=== PATIENT | female | born 1985 | race Two or more races ===

== ENCOUNTER → 2024-11-12 | Outpatient (CLI) | payer OTHER ==
[2024-11-12 16:20] LABS: Basophils # (auto) 0.1 10 ^3/uL (0-0.2); Basophils % (auto) 0.9 % (0.0-2.0); Eosinophils # (auto) 0.1 10 ^3/uL (0-0.8); Eosinophils % (auto) 1.1 % (0.0-7.0); Hematocrit 41.6 % (36.0-46.0); Hemoglobin 14.3 g/dL (12.2-16.2); Lymphocytes # (auto) 2.3 10 ^3/uL (0.4-5.4); Lymphocytes % (auto) 20.9 % (10.0-50.0); Mean Corpuscular Hemoglobin 29.3 pg (28.0-32.0); Mean Corpuscular Hgb Conc. 34.3 g/dL (32.0-36.0); Mean Corpuscular Volume 85.4 fL (80.0-100.0); Monocytes # (auto) 0.7 10 ^3/uL (0-1.3); Monocytes % (auto) 6.5 % (0.0-12.0); Neutrophils # (auto) 7.8 10 ^3/uL (1.6-8.6); Neutrophils % (auto) 70.6 % (37.0-80.0); Nucleated Red Blood Cells % 0.1 %; Platelet Count (auto) 343 10^3/uL (140-450); Red Blood Cells 4.87 10^6/uL (4.0-5.20); Red Cell Distribution Width 13.7 % (11.8-14.3)
[2024-11-12 16:38] LABS: Alanine Aminotransferase 15 U/L (7-40); Albumin 4.6 g/dL (3.2-4.8); Alkaline Phosphatase 55 U/L (46-116); Anion Gap 9 (5-15); Bilirubin, Total 0.3 mg/dL (0.2-1.0); Calcium 10.1 mg/dL (8.7-10.4); Carbon Dioxide 23 mmol/L (20-31); Chloride 104 mmol/L (98-107); Cholesterol 160 mg/dL (< 200); Glucose 82 mg/dL (74-106); HDL Cholesterol 50 mg/dL (40-59); LDL Cholesterol 96 mg/dL (< 100)
[2024-11-12 16:44] LABS: Aspartate Aminotransferase 12 U/L (13-40); BUN/Creatinine Ratio 9.1 (10.0-20.0); Blood Urea Nitrogen < 5 mg/dL (9-23); Sodium 136 mmol/L (136-145); Triglycerides 192 mg/dL (< 150)
[2024-11-12 17:20] LABS: Amphetamine Screen, Urine Neg (NEGATIVE); Barbiturate Scree,Urine Neg (NEGATIVE); Benzodiazephine Screen, Urine Neg (NEGATIVE); Cannabinoid Screen, Urine Neg (NEGATIVE); Cocaine Screen, Urine Neg (NEGATIVE); Opiate Scree,Urine Neg (NEGATIVE); Phencyclidine Screen, Urine Neg (NEGATIVE)
[2024-11-12 18:37] LABS: Beta HCG, Quantitative 91002.8 mIU/mL (1.5-4.2); Thyroid Stimulating Hormone 2.5 uIU/mL (0.55-4.78)
[2024-11-13 07:07] LABS: RPR Non Reactive (Non Reactive); Varicella Zoster IgG Antibody Reactive (Non Reactive)
[2024-11-13 21:06] LABS: Chlamydia Trachomatis, NAA Negative (Negative); Neisseria gonorrhoeae, NAA Negative (Negative)
== END | disposition home or self-care (01) ==
LOC: LAB 15:49
PROVIDERS: ATTEND Obstetrics & Gynecology
DX: O23.40 Unspecified infection of urinary tract in pregnancy, unspecified trimester (principal); Z31.430 Encounter of female for testing for genetic disease carrier status for procreative management; Z36.0 Encounter for antenatal screening for chromosomal anomalies; N39.0 Urinary tract infection, site not specified; Z3A.00 Weeks of gestation of pregnancy not specified
CPT/HCPCS: 36415; 80053; 80061; 80307; 84439; 84443; 84702; 85025; 86592; 86703; 86762; 86787; 86850; 86900; 86901; 87086; 87902

== ENCOUNTER → 2024-12-02 | Outpatient (CLI) | payer OTHER ==
[2024-12-03 10:07] LABS: Rubella Antibodies, IgG 7.31 index (Immune >0.99)
== END | disposition home or self-care (01) ==
LOC: LAB 15:06
PROVIDERS: ATTEND Obstetrics & Gynecology
DX: O99.280 Endocrine, nutritional and metabolic diseases complicating pregnancy, unspecified trimester (principal); E28.2 Polycystic ovarian syndrome; Z3A.00 Weeks of gestation of pregnancy not specified
CPT/HCPCS: 36415; 84443; 86762; 87340

== ENCOUNTER 2025-05-12 11:50 | Observation (INO) | payer BC, OTHER ==
[2025-05-12] MEDS ORDERED: PREN1TAB71 OR (12:01)
--- NOTE | 2025-05-12 15:09 | DVH ---
BIOPHYSICAL PROFILE HISTORY: AMA TECHNIQUE: Multiple transabdominal real-time grayscale sonographic images through the gravid uterus of the fetus with duplex Doppler color flow and M-mode spectral analysis FINDINGS: BIOPHYSICAL PROFILE:2 breathing score: 2 movement score: 2 tone score: 2 Quantitative LUIS score: 2 (LUIS: 16.4 Cm.) Total score: 8/8 The cervix obscured by head Single live fetus in cephalic presentation. heart rate 165 beats per minute. Fundal Grade 2-3 placenta without previa or abruption Single live fetus at 35 weeks 4 days Biophysical profile score 8/8 corresponding to an GABRIEL of 06/12/2025 Estimated weight calculi ANATOMY imaged 4-chamber heart image spine image possible nuchal cord stomach visualized kidneys visualized on the right and left Cord insertion visualized Bladder visualized Upper extremities visualized Lower extremities visualized 3-vessel cord visualized IMPRESSION: 1. Biophysical profile score: 8/8 2. FHR: 3. Possible nuchal cord
--- NOTE | 2025-05-12 16:19 | DVHDS2 ---
Physician Discharge Progress N Final Diagnosis: testing for AMA Operations or Procedures: Operations or Procedures 40yo IUP@35.4wks, +FM, denies UCs/LOF/VB VSS Category 1 EFM but NST non-reactive (FHR baseline 150, moderate variability, +accels, -decels) I personally reviewed the EFM tracing. PO hydrated FKC/PTL precautions reviewed f/u in [address] Cardenas consulted, agrees with POC Other Interventions Other Interventions [place] [id number] Ph: [phone] DIAGNOSTIC IMAGING Diagnostic Imaging Report : [id number] Signed PATIENT: RAH POLANCO ACCT: [id number] UNIT: [id number] : 1985 LOC: [facility] ROOM / BED: [address] AGE / SEX: 40 / F ADM STATUS: ADM IN SERVICE 1158 ORDERING PHYSICIAN: NIEVES RODRIGUEZ CNM PROCEDURE(s): BPP - BIOPHYSICAL PROFILE REASON: AMA ORDER NUMBER(s): [id number], ACCESSION NUMBER(s): [id number] BIOPHYSICAL PROFILE HISTORY: AMA TECHNIQUE: Multiple transabdominal real-time grayscale sonographic images through the gravid uterus of the fetus with duplex Doppler color flow and M-mode spectral analysis FINDINGS: BIOPHYSICAL PROFILE:2 breathing score: 2 movement score: 2 tone score: 2 Quantitative LUIS score: 2 (LUIS: 16.4 Cm.) Total score: 8/8 The cervix obscured by head Single live fetus in cephalic presentation. heart rate 165 beats per minute. Fundal Grade 2-3 placenta without previa or abruption Single live fetus at 35 weeks 4 days Biophysical profile score 8/8 corresponding to an GABRIEL of 06/12/2025 Estimated weight calculi ANATOMY imaged 4-chamber heart image spine image possible nuchal cord stomach visualized kidneys visualized on the right and left Cord insertion visualized Bladder visualized Upper extremities visualized Lower extremities visualized 3-vessel cord visualized IMPRESSION: 1. Biophysical profile score: 8/8 2. FHR: 3. Possible nuchal cord ATED BY: ZAINAB GURROLA Jr., DO DICTATED DATE/TIME: 05/12/25 1507 SIGNED BY: ZAINAB GURROLA Jr., SIGNED DATE/TIME: 05/12/25 1507 CC: Condition on Discharge: Stable Disposition: Home Discharge Instructions: Diet: Regular Activity: No Restrictions, As Tolerated Medications: see med list Follow Up Care: Specialist: f/u in 2 days Discharge Statement: "Patient was advised to return to the ER or call 911 if any headaches, dizziness, shortness of breath, chest pain, abdominal pain, bleeding, fevers, or worsening of medical condition. Patient was counseled about treatment plan, medications, possible side effects, patientverbalized understanding. All questions were answered to the best of my ability. This discharge took greater then 30 minutes in planning, reviewing documentation, counseling the patient, and discussing with other team members." Visit Coding OBGYN Date of Service: May 12, 2025 Billing Provider: NIEVES RODRIGUEZ CNM RN REVIEW Common Visit Codes: [id number] OBS CARE (HIGH) RN REVIEW Procedure Codes: 87750-52- NON-STRESS TEST NIEVES RODRIGUEZ CNM May 12, 2025 16:18
== END 2025-05-12 15:03 | disposition home or self-care (01) ==
LOC: LDRP 11:50 → UNDOADMOB 11:50 → LDRP 11:59 → UNDODISOB 15:03
PROVIDERS: ADMIT Obstetrics & Gynecology; ATTEND Obstetrics & Gynecology
DX: Z36.89 Encounter for other specified antenatal screening (principal); O09.523 Supervision of elderly multigravida, third trimester; Z3A.35 35 weeks gestation of pregnancy; Z98.890 Other specified postprocedural states; Z79.899 Other long term (current) drug therapy
CPT/HCPCS: 76818; 81002; 94760; G0378; 59025; 76819

== ENCOUNTER 2025-05-14 10:50 | Observation (INO) | payer BC ==
[~2025-05-14 10:50] MED LIST: PREN1TAB71 OR
--- NOTE | 2025-05-14 11:40 | DVH ---
BIOPHYSICAL PROFILE HISTORY: advanced maternal age TECHNIQUE: Multiple transabdominal real-time grayscale sonographic images through the gravid uterus o f the fetus with duplex doppler color flow and M-mode spectral analysis FINDINGS: BIOPHYSICAL PROFILE: breathing score: 2 movement score: 2 tone score: 2 Quantitative LUIS score: 2 (LUIS: 13.9 cm.) Total score: 8/8 Single live fetus in cephalic presentation. heart rate 159 beats per minute. Fundal/ posterior placenta without previa or abruption Biophysical profile score 8/8 corresponding to an GABRIEL of 06/12/25 IMPRESSION: Biophysical profile score: 8/8
--- NOTE | 2025-05-16 09:01 | DVHDS2 ---
Physician Discharge Progress N Final Diagnosis: ama 35wks Operations or Procedures: Operations or Procedures nst reactive reviwed,sono Condition on Discharge: Good Disposition: Home Discharge Instructions: Diet: Regular Activity: No Restrictions, As Tolerated Medications: na Follow Up Care: Specialist: 1wk Discharge Statement: "Patient was advised to return to the ER or call 911 if any headaches, dizziness, shortness of breath, chest pain, abdominal pain, bleeding, fevers, or worsening of medical condition. Patient was counseled about treatment plan, medications, possible side effects, patientverbalized understanding. All questions were answered to the best of my ability. This discharge took greater then 30 minutes in planning, reviewing documenta tion, counseling the patient, and discussing with other team members." Visit Coding OBGYN Date of Service: May 08, 2025 Billing Provider: SENA BELL DO ROUGHING MILL OPERATOR Common Visit Codes: [id number] OBS CARE (HIGH) ROUGHING MILL OPERATOR Procedure Codes: 80090-85- NON-STRESS TEST SENA BELL DO May 16, 2025 09:01
== END 2025-05-14 12:14 | disposition home or self-care (01) ==
LOC: LDRP 10:50
PROVIDERS: ADMIT Obstetrics & Gynecology; ATTEND Obstetrics & Gynecology
DX: O09.523 Supervision of elderly multigravida, third trimester (principal); Z3A.35 35 weeks gestation of pregnancy; Z98.890 Other specified postprocedural states; Z79.899 Other long term (current) drug therapy
CPT/HCPCS: 76818; 76819; 81002; 94760; G0378; 59025

== ENCOUNTER 2025-05-21 09:12 | Observation (INO) | payer BC ==
--- NOTE | 2025-05-21 10:05 | DVH ---
BIOPHYSICAL PROFILE HISTORY: AMA TECHNIQUE: Multiple transabdominal real-time grayscale sonographic images through the gravid uterus of the fetus with duplex Doppler color flow and M-mode spectral analysis FINDINGS: BIOPHYSICAL PROFILE: breathing score: 2 movement score: 2 tone score: 2 Quantitative LUIS score: 2 (LUIS: 11.2 Cm.) Total score: 8 The cervix not well visualized. Single live fetus in cephalic presentation. heart rate 148 beats per minute. Posterior placenta without previa or abruption IMPRESSION: Biophysical profile score: 8
== END 2025-05-21 10:26 | disposition home or self-care (01) ==
LOC: LDRP 09:12
PROVIDERS: ADMIT Obstetrics & Gynecology; ATTEND Obstetrics & Gynecology
DX: Z36.89 Encounter for other specified antenatal screening (principal); Z3A.36 36 weeks gestation of pregnancy; Z98.890 Other specified postprocedural states
CPT/HCPCS: 76818; 81002; 94760; G0378; 59025; 76819

== ENCOUNTER 2025-05-28 06:26 | Observation (INO) | payer BC ==
--- NOTE | 2025-05-28 10:05 | DVH ---
BIOPHYSICAL PROFILE HISTORY: AMA Comparison Study: US BIOPHYSICAL PROFILE on DOS: 05/21/25, US BIOPHYSICAL PROFILE on DOS: 05/14/25, US BIOPHYSICAL PROFILE on DOS: 05/12/25 TECHNIQUE: Multiple real-time grayscale sonographic images through the gravid uterus of the fetus wi th duplex Doppler color flow and M-mode spectral analysis FINDINGS: BIOPHYSICAL PROFILE: breathing score: 2 movement score: 2 tone score: 2 Quantitative LUIS score: 2 (LUIS: 7.8 Cm.) Total score: 8 The cervix is not visualized Single live fetus in cephalic presentation. heart rate 147 beats per minute. Posterior placenta without previa or abruption IMPRESSION: Biophysical profile score: 8
--- NOTE | 2025-05-28 14:46 | DVHDS2 ---
Physician Discharge Progress N Final Diagnosis: ama 37wks Operations or Procedures: Operations or Procedures nst reactive reviwed,sono Condition on Discharge: Good Disposition: Home Discharge Instructions: Diet: Regular Activity: No Restrictions, As Tolerated Medications: na Follow Up Care: Specialist: 1w Discharge Statement: "Patient was advised to return to the ER or call 911 if any headaches, dizziness, shortness of breath, chest pain, abdominal pain, bleeding, fevers, or worsening of medical condition. Patient was counseled about treatment plan, medications, possible side effects, patientverbalized understanding. All questions were answered to the best of my ability. This discharge took greater then 30 minutes in planning, reviewing documentat ion, counseling the patient, and discussing with other team members." Visit Coding OBGYN Date of Service: May 28, 2025 Billing Provider: SENA BELL DO GAS LINE SERVICER Common Visit Codes: [id number] OBS CARE (HIGH) GAS LINE SERVICER Procedure Codes: 77307-47- NON-STRESS TEST SENA BELL DO May 28, 2025 14:45
== END 2025-05-28 10:52 | disposition home or self-care (01) ==
LOC: LDRP 08:49
PROVIDERS: ADMIT Obstetrics & Gynecology; ATTEND Obstetrics & Gynecology
DX: O09.513 Supervision of elderly primigravida, third trimester (principal); Z3A.37 37 weeks gestation of pregnancy; Z98.890 Other specified postprocedural states
CPT/HCPCS: 76818; 81002; 94760; G0378; 59025; 76819

== ENCOUNTER 2025-05-30 12:12 | Observation (INO) | payer BC ==
[~2025-05-30] VITALS: Ht 157.5 cm; Wt 85.7 kg
--- NOTE | 2025-05-30 13:03 | DVH ---
BIOPHYSICAL PROFILE HISTORY: LUIS CHECK/ AMA TECHNIQUE: Multiple transabdominal real-time grayscale sonographic images through the gravid uterus of the fetus with duplex Doppler color flow and M-mode spectral analysis FINDINGS: Biophysical score of 8/8. heart rate of 169 beats per minute. position is cephalic. LUIS of 5.64. Placenta is in posterior position. No placenta abrupt out or previous noted at this time. IMPRESSION: 1. Biophysical score of 8/8 2. LUIS of 5.64, low.
[2025-05-30] MEDS: LACTATED RINGER'S 1,000 ML IV ONE (13:56)
--- NOTE | 2025-06-10 15:27 | DVHDS2 ---
Physician Discharge Progress N Final Diagnosis: ama,gdm Operations or Procedures: Operations or Procedures nst reactive reviwed,sono Condition on Discharge: Good Disposition: Home Discharge Instructions: Diet: Regular Activity: No Restrictions, As Tolerated Medications: na Follow Up Care: Specialist: 3d Discharge Statement: "Patient was advised to return to the ER or call 911 if any headaches, dizziness, shortness of breath, chest pain, abdominal pain, bleeding, fevers, or worsening of medical condition. Patient was counseled about treatment plan, medications, possible side effects, patientverbalized understanding. All questions were answered to the best of my ability. This discharge took greater then 30 minutes in planning, reviewing documentatio n, counseling the patient, and discussing with other team members." Visit Coding OBGYN Date of Service: May 30, 2025 Billing Provider: SENA BELL DO FAMILY SERVICES SPECIALIST Common Visit Codes: 76125-[id number] (HIGH) FAMILY SERVICES SPECIALIST Procedure Codes: 57530-54- NON-STRESS TEST SENA BELL DO Jun 10, 2025 15:27
== END 2025-05-30 14:45 | disposition home or self-care (01) ==
LOC: LDRP 12:12
PROVIDERS: ADMIT Obstetrics & Gynecology; ATTEND Obstetrics & Gynecology
DX: O24.419 Gestational diabetes mellitus in pregnancy, unspecified control (principal); Z3A.38 38 weeks gestation of pregnancy; Z98.890 Other specified postprocedural states
CPT/HCPCS: 59025; 76818; 81002; 96360; 96361; G0378; 76819

== ENCOUNTER 2025-05-31 08:34 | Observation (INO) | payer BC ==
--- NOTE | 2025-05-31 09:24 | DVH ---
BIOPHYSICAL PROFILE HISTORY: low LUIS TECHNIQUE: Multiple transabdominal real-time grayscale sonographic images through the gravid uterus of the fetus with duplex Doppler color flow and M-mode spectral analysis FINDINGS: Biophysical score of 8/8. heart rate of 162 beats per minute. Cephalic position. LUIS of 7.3 cm. Posterior placental location. No placenta previa or abruptio. IMPRESSION: 1. Biophysical score of 8/ 2. LUSI of 7.3 cm, low.
--- NOTE | 2025-06-01 17:27 | DVHDS2 ---
Discharge Summary Date of Admission May 31, 2025 at 08:34 Date of Discharge: May 31, 2025 Admitting Diagnosis 3827 weeks who for routine monitoring secondary to low amniotic fluid index Wounds: None Labs/Diagnostic Data: NST BPP ultrasound performed reassuring adequate Brief Hx & Hospital Course: Patient here for routine for NST and ultrasound Consults/Reason for consult No consults Operations or Procedures None only NST ultrasound performed Condition at Discharge: Good Final Diagnosis/Problems List 30-10/31 low LUIS reassuring heart tones and amniotic fluid Discharge Disposition: Home Discharge Instruct/Medications Diet: Regular Activity: Light activity Activity comment: Kick counts labor precautions Follow Up/Referral: Follow up as scheduled for continuous monitoring. Miscellaneous Medications Vit W/ Ferrous Fumara (Pnv Plus Multivi), 1 OR, (Reported) Discharge Statement: "Patient was advised to return to the ER or call 911 if any headaches, dizziness, shortness of breath, chest pain, abdominal pain, bleeding, fevers, or worsening of medical condition. Patient was counseled about treatment plan, medications, possible side effects, patientverbalized understanding. All questions were answered to the best of my ability. This discharge took greater then 30 minutes in planning, reviewing do cumentation, counseling the patient, and discussing with other team members." ASSESSMENT ASSESSMENT Assessment Visit Coding OBGYN Date of Service: May 31, 2025 Billing Provider: JONNIE JUAREZ DO MACHINE REPAIRER Common Visit Codes: [id number] INP/OBS CARE(MOD), 48026-[id number] INP/OBS CARE(HIGH), 29651-UKS/OBS SAME DATE (LOW) MACHINE REPAIRER Procedure Codes: 32521-45- NON-STRESS TEST JONNIE JUAREZ DO Jun 01, 2025 17:26
--- NOTE | 2025-06-01 17:48 | DVHDS2 ---
Discharge Summary Date of Admission May 31, 2025 at 08:34 Date of Discharge: May 31, 2025 Admitting Diagnosis Thirty-eight weeks advanced maternal age history of low fluid LUIS Wounds: None Labs/Diagnostic Data: None Brief Hx & Hospital Course: Patient here for routine for NST and ultrasound both reassuring Consults/Reason for consult None Operations or Procedures None only NST ultrasound performed Condition at Discharge: Good Final Diagnosis/Problems List low LUIS reassuring heart tones and amniotic fluid Discharge Disposition: Home Discharge Instruct/Medications Diet: Regular Activity: Light activity Activity comment: Kick counts labor precautions Follow Up/Referral: Follow up as scheduled for continuous monitoring. Medications: Resume home med Miscellaneous Medications Vit W/ Ferrous Fumara (Pnv Plus Multivi), 1 OR, (Reported) Discharge Statement: "Patient was advised to return to the ER or call 911 if any headaches, dizziness, shortness of breath, chest pain, abdominal pain, bleeding, fevers, or worsening of medical condition. Patient was counseled about treatment plan, medications, possible side effects, patientverbalized understanding. All questions were answered to the best of my ability. This discharge took greater then 30 minutes in planning, reviewing documentation, counseling the patient, and discussing with other team members." ASSESSMENT ASSESSMENT Hospital Course Patient here for routine for NST and ultrasound Assessment low LUIS reassuring heart tones and amniotic fluid Visit Coding OBGYN Date of Service: May 30, 2025 Billing Provider: JONNIE JUAREZ DO REFRIGERATION PLANT OPERATOR Common Visit Codes: [id number] INP/OBS CARE(MOD), 67198-[id number] INP/OBS CARE(HIGH), 37362-GJM/OBS SAME DATE (LOW) REFRIGERATION PLANT OPERATOR Procedure Codes: 95062-00- NON-STRESS TEST JONNIE JUAREZ DO Jun 01, 2025 17:48
== END 2025-05-31 10:00 | disposition home or self-care (01) ==
LOC: LDRP 08:34
PROVIDERS: ADMIT Obstetrics & Gynecology; ATTEND Obstetrics & Gynecology
DX: O42.92 Full-term premature rupture of membranes, unspecified as to length of time between rupture and onset of labor (principal); Z3A.38 38 weeks gestation of pregnancy; Z98.890 Other specified postprocedural states
CPT/HCPCS: 76818; 81002; G0378; 59025; 76819

== ENCOUNTER 2025-06-02 08:12 | Observation (INO) | payer BC ==
--- NOTE | 2025-06-02 10:00 | DVH ---
CLINICAL HISTORY: Low LUIS COMPARISON: US BIOPHYSICAL PROFILE on DOS: 05/31/25, US BIOPHYSICAL PROFILE on DOS: 05/30/25, US BIOPHYSI SIMBA PROFILE on DOS: 05/28/25 TECHNIQUE: biophysical profile was performed. Transabdominal sonographic images of the fetus we re obtained. FINDINGS: The fetus is in cephalic position. heart rate measures 148 BPM. Amniotic fluid index measures 7.3 cm. The placenta is posterior in position with no evidence of previa or abruption visual ized. BPP profile is an overall score of 8/8, with 2/2 points for breathing, with at least one episode of breathing over a 30 second duration during a 30 minute observation, 2/2 points for m ovements, with 3 or more discrete body or limb movements, 2/2 points for tone, with one or more episodes of extremity extension with return to flexion, or opening and closing of hand, and 2/ 2 points for amniotic fluid, with at least 1 pocket of amniotic fluid that measures 2 cm in 2 perpend icular planes. IMPRESSION: 1. BPP score of 8/8. 2. Amniotic fluid index measures 7.3 cm.
--- NOTE | 2025-06-03 23:05 | DVHDS2 ---
Physician Discharge Progress N Final Diagnosis: ama 38wks low ellie Operations or Procedures: Operations or Procedures nst reactive reviewed,sono Condition on Discharge: Good Disposition: Home Discharge Instructions: Diet: Regular Activity: No Restrictions, As Tolerated Medications: na Follow Up Care: Specialist: 1d Discharge Statement: "Patient was advised to return to the ER or call 911 if any headaches, dizziness, shortness of breath, chest pain, abdominal pain, bleeding, fevers, or worsening of medical condition. Patient was counseled about treatment plan, medications, possible side effects, patientverbalized understanding. All questions were answered to the best of my ability. This discharge took greater then 30 minutes in planning, reviewing documentation, counseling the patient, and discussing with other team members." Discharge Care Plan Instructions S/S of dehydration Visit Coding OBGYN Date of Service: Jun 02, 2025 Billing Provider: SENA BELL DO BUGGY MAN Common Visit Codes: [id number] INP/OBS CARE (HIGH) BUGGY MAN Procedure Codes: [id number] NON-STRESS TEST SENA BELL DO Jun 03, 2025 23:05
== END 2025-06-02 10:41 | disposition home or self-care (01) ==
LOC: LDRP 08:12 → UNDOADMOB 08:12 → LDRP 09:22
PROVIDERS: ADMIT Obstetrics & Gynecology; ATTEND Obstetrics & Gynecology
DX: O42.92 Full-term premature rupture of membranes, unspecified as to length of time between rupture and onset of labor (principal); Z3A.38 38 weeks gestation of pregnancy; Z98.890 Other specified postprocedural states
CPT/HCPCS: 76818; 81002; 94760; G0378; 59025; 76819

== ENCOUNTER 2025-06-03 08:02 | Inpatient (IN) | payer BC ==
[~2025-06-03] VITALS: Ht 157.5 cm; Wt 92.5 kg
--- NOTE | 2025-06-03 09:04 | DVH ---
CLINICAL HISTORY: decreased movement COMPARISON: US BIOPHYSICAL PROFILE on DOS: 06/02/25, US BIOPHYSICAL PROFILE on DOS: 05/31/25, US BIOPHYSI SIMBA PROFILE on DOS: 05/30/25 TECHNIQUE: biophysical profile was performed. Transabdominal sonographic images of the fetus we re obtained. FINDINGS: The fetus is in cephalic position. heart rate measures 145 BPM. Amniotic fluid index measures 5.1 cm. The placenta is posterior in position without visualized evidence of previa or abrup tion. BPP profile is an overall score of 8/8, with 2/2 points for breathing, with at least one episode of breathing over a 30 second duration during a 30 minute observation, 2/2 points for m ovements, with 3 or more discrete body or limb movements, 2/2 points for tone, with one or more episodes of extremity extension with return to flexion, or opening and closing of hand, and 2/ 2 points for amniotic fluid, with at least 1 pocket of amniotic fluid that measures 2 cm in 2 perpend icular planes. IMPRESSION: 1. BPP score of 8/8. 2. Amniotic fluid index measures 5.1 cm.
[2025-06-03] MEDS ORDERED: LIDOCAINE 2%HCL (LOCAL ANESTH.) INJ 20ML MDV IJ PRN (10:00)
[2025-06-03] MEDS ORDERED: BUTORPHANOL TARTRATE 2 MG/1 ML VIAL IV PRN ×2 (10:00)
[2025-06-03 10:56] LABS: Hematocrit 39.0 % (36.0-46.0); Hemoglobin 13.4 g/dL (12.2-16.2); Mean Corpuscular Hemoglobin 30.4 pg (28.0-32.0); Mean Corpuscular Volume 88.4 fL (80.0-100.0); Nucleated Red Blood Cells % 0.2 %
[2025-06-03 11:13] LABS: INR 0.9 (0.9-1.15); Partial Thromboplastin Time 31.0 SEC (24.5-34.5); Prothrombin Time 9.6 sec (9.3-11.8)
[2025-06-03 11:14] LABS: Alanine Aminotransferase 17 U/L (7-40); Albumin 4.3 g/dL (3.2-4.8); Alkaline Phosphatase 130 U/L (46-116); Anion Gap 10 (5-15); BUN/Creatinine Ratio 10.9 (10.0-20.0); Bilirubin, Total 0.4 mg/dL (0.2-1.0); Blood Urea Nitrogen 6 mg/dL (9-23); Calcium 9.7 mg/dL (8.7-10.4); Carbon Dioxide 24 mmol/L (20-31); Chloride 104 mmol/L (98-107); Glucose 62 mg/dL (74-106); Potassium 4.0 mmol/L (3.5-5.1); Sodium 138 mmol/L (136-145); Total Protein 7.2 g/dL (5.7-8.2)
[2025-06-03 11:55] LABS: Urine Protein, UAD Negative (Negative)
[2025-06-03 12:02] LABS: Amphetamine Screen, Urine Neg (NEGATIVE); Barbiturate Scree,Urine Neg (NEGATIVE); Benzodiazephine Screen, Urine Neg (NEGATIVE); Cannabinoid Screen, Urine Neg (NEGATIVE); Cocaine Screen, Urine Neg (NEGATIVE); Opiate Scree,Urine Neg (NEGATIVE); Phencyclidine Screen, Urine Neg (NEGATIVE)
--- NOTE | 2025-06-03 12:18 | DVHHP2 ---
OB CC & HPI Date Date of Admission: Jun 03, 2025 Patient Identification: : 3 Para: 2 EDC: Jun 12, 2025 EGA: 38.5wk Chief Complaints: Reason for admission: induction of labor Indication for induction: other (low LUIS) Admission Nurse Assessment Rev: Yes History of Present Complaints 40 yo IUP 38.5wk presents to OB triage for N/V and decreased movement. Denies any LOF/ VB/ BALDWIN/ vision changes or epigastric pain. 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, denies any other radio despatcher issues OB hx: in 2008, baby boy at 6lb, in 2019 baby boy at 6lb, denies any miscarriage or abortions or any other OB issues Past Medical History Cardiac: No pertinent Hx Pulmonary: No pertinent Hx Central Nervous System: No pertinent Hx GI: No pertinent Hx Hemotology/Oncology: No pertinent Hx Hepatobiliary: No pertinent Hx Psychiatric: No pertinent Hx Musculoskeletal: No pertinent Hx Rheumotologic: No pertinent Hx Infectious Disease: No peritnent Hx ENT: No pertinent Hx Renal/: No pertinent Hx Endocrine: No pertinent Hx Dermatology: No pertinent Hx Past Surgical History: No pertinent Hx OB History OB History Care: Good Care Ultrasounds: Normal mid trimester US Obstetrical Complications: None Medical Complications: None Other Concerns: US revealed low LUIS of 5.1 Allergies: Coded Allergies: NO KNOWN ALLERGIES (Unverified , 05/30/25) Home Meds Reported Medications Vit W/ Ferrous Fumara (PNV PLUS MULTIVI) Plus Tab, 1 OR, TAB 05/12/25 Current Medications Current Medications Medications (Trade) Dose Ordered Sig/Georgie Route PRN Reason Start Time Stop Time Status Last Admin Lactated Ringer's 1,000 ml @ 125 mls/hr Q8H IV 06/03/25 10:00 Witch Ruthie (Tucks) 1 pad PRN PRN TOP PERINEAL AREA DISCOMFORT 06/03/25 10:00 Sodium Lauryl Sulfate (Phisoderm) 240 ml PRN PRN TOP PERINEAL AREA DISCOMFORT 06/03/25 10:00 Benzocaine (Dermoplast) 1 applic PRN PRN TOP PERINEAL AREA DISCOMFORT 06/03/25 10:00 Butorphanol Tartrate (Stadol Injection) 1 mg Q4HPRN PRN IV MODERATE PAIN (4-6 PAIN SCALE) 06/03/25 10:00 Butorphanol Tartrate (Stadol Injection) 2 mg Q4HPRN PRN IV SEVERE PAIN (7-10 PAIN SCALE) 06/03/25 10:00 Misoprostol (Cytotec) 50 mcg Q4HPRN PRN PO CERVICAL RIPENING 06/03/25 10:00 06/03/25 11:50 Lidocaine HCl (Xylocaine) 20 ml ONCE PRN IJ PERINEAL AREA DISCOMFORT 06/03/25 10:00 Family & Social History Family/Social History Past Family/Social History: denies any family medical hx Social hx: pt states she does not work, denies use of drug or alcohol abuse with Blood Type: O+ Rubella: immune RPR/VDRL: Negative GBS Status: Negative (05/19/25) HBsAG: Negative Review of Systems Constitutional: No symptom reported Ears, Nose, & Throat: No symptom reported Eyes: No symptom reported Pulmonary/Respiratory: No symptom reported Cardiovascular: No symptom reported Gastrointestinal: No symptom reported Genitourinary: No symptom reported Musculoskeletal: No symptom reported Skin: No symptom reported Psychiatric: No symptom reported Endocrine: No symptom reported Hemotologic/Lymphatic: No symptom reported OB Admission Exam Physical Exam HEENT: TMs Normal, Fontanelles Normal, Nasal Mucosa Normal, Eyes non-injected, Oropharynx Normal, PERRLA, Moist Membranes, EOMI Heart: Rhythm Normal Lungs: Clear Abdomen: Gravid Extremities: Normal Reflexes: Normal Pelvic Exam: none Cervical Dilatation: 1cm Effacement: Other (thick) Station: -3 Membranes: Intact Heart Rate: 120's Accelerations: Accelerations Present Decelerations: No Decelerations Med Aide Variability: Average (6-25) Contractions on Admission: 6-10 Minutes Apart (1/10 min) Date/Time Contractions Began: 06/03/25 Frequency of Contractions: 1 in 10 min Duration: 90 Intensity: Mild (pt states she does not feel UC) OB Plan Plan Admitting Diagnosis: Induction of labor for Low LUIS 40 yo IUP @ 38.5wk GBS negative Cat 1 tracing Intact membranes Plan: Induction Induction Methd: Misoprostol protocol Other Plan: Plan: Admit to L&D Informed consent obtained Discussed risk, benefits and alternatives of IOL with pt. Pt agrees to IOL with cytotec monitoring per order Routine labs ordered Pain management PRN Frequent position changes in and out of bed encouraged Intrauterine resuscitation PRN Limit SVE unless necessary Anticipate Consult with Dr Cardenas PRN Visit Coding OBGYN Date of Service: Jun 03, 2025 Billing Provider: SENA CARDENAS DO HOSPICE PHYSICIAN Common Visit Codes: [id number] INP/OBS CARE (MOD) GRACIELA DENTON Jun 03, 2025 12:18
--- NOTE | 2025-06-03 15:27 | DVHPN2 ---
Chief Complaints Patient reports: No new complaints Nursing reports: No new complaints Objective Medications Current Medications Medications (Trade) Dose Ordered Sig/Georgie Route PRN Reason Start Time Stop Time Status Last Admin Benzocaine (Dermoplast) 1 applic PRN PRN TOP PERINEAL AREA DISCOMFORT 06/03/25 10:00 Butorphanol Tartrate (Stadol Injection) 1 mg Q4HPRN PRN IV MODERATE PAIN (4-6 PAIN SCALE) 06/03/25 10:00 Butorphanol Tartrate (Stadol Injection) 2 mg Q4HPRN PRN IV SEVERE PAIN (7-10 PAIN SCALE) 06/03/25 10:00 Lactated Ringer's 1,000 ml @ 125 mls/hr Q8H IV 06/03/25 10:00 Lidocaine HCl (Xylocaine) 20 ml ONCE PRN IJ PERINEAL AREA DISCOMFORT 06/03/25 10:00 Misoprostol (Cytotec) 50 mcg Q4HPRN PRN PO CERVICAL RIPENING 06/03/25 10:00 06/03/25 11:50 Sodium Lauryl Sulfate (Phisoderm) 240 ml PRN PRN TOP PERINEAL AREA DISCOMFORT 06/03/25 10:00 Witch Ruthie (Tucks) 1 pad PRN PRN TOP PERINEAL AREA DISCOMFORT 06/03/25 10:00 Others ve-1cm/50/-2 Studies Laboratory Tests 06/03/25 10:16 Test 06/03/25 10:16 Range/Units Serum Glucose 62 L 74-106 mg/dL Ass/Plan Assessment iol for oligo Plan recived one cytotec Visit Coding OBGYN Date of Service: Jun 03, 2025 Billing Provider: SENA BELL DO RESIDENTIAL AIDE Common Visit Codes: [id number] OBS CARE (HIGH) RESIDENTIAL AIDE Procedure Codes: 85169-42- NON-STRESS TEST SENA BELL DO Jun 03, 2025 15:27
--- NOTE | 2025-06-03 16:00 | DVHPN2 ---
Chief Complaints Patient reports: No new complaints Nursing reports: No new complaints Objective Medications Current Medications Medications (Trade) Dose Ordered Sig/Georgie Route PRN Reason Start Time Stop Time Status Last Admin Benzocaine (Dermoplast) 1 applic PRN PRN TOP PERINEAL AREA DISCOMFORT 06/03/25 10:00 Butorphanol Tartrate (Stadol Injection) 1 mg Q4HPRN PRN IV MODERATE PAIN (4-6 PAIN SCALE) 06/03/25 10:00 Butorphanol Tartrate (Stadol Injection) 2 mg Q4HPRN PRN IV SEVERE PAIN (7-10 PAIN SCALE) 06/03/25 10:00 Lactated Ringer's 1,000 ml @ 125 mls/hr Q8H IV 06/03/25 10:00 Lidocaine HCl (Xylocaine) 20 ml ONCE PRN IJ PERINEAL AREA DISCOMFORT 06/03/25 10:00 Misoprostol (Cytotec) 50 mcg Q4HPRN PRN PO CERVICAL RIPENING 06/03/25 10:00 06/03/25 11:50 Sodium Lauryl Sulfate (Phisoderm) 240 ml PRN PRN TOP PERINEAL AREA DISCOMFORT 06/03/25 10:00 Witch Ruthie (Tucks) 1 pad PRN PRN TOP PERINEAL AREA DISCOMFORT 06/03/25 10:00 Others ve-2-3 cm/50/-2 Studies Laboratory Tests 06/03/25 10:16 Test 06/03/25 10:16 Range/Units Serum Glucose 62 L 74-106 mg/dL Ass/Plan Assessment iol for oligo Plan rec 2 cytotec Visit Coding OBGYN Date of Service: Jun 03, 2025 Billing Provider: SENA BELL DO CENTRAL OFFICE EQUIPMENT INSTALLER Common Visit Codes: [id number] INP/OBS CARE(HIGH) CENTRAL OFFICE EQUIPMENT INSTALLER Procedure Codes: 72612-94- NON-STRESS TEST SENA BELL DO Jun 03, 2025 16:00
[2025-06-03] MEDS: LACTATED RINGER'S 1,000 ML IV SCH (16:03)
[2025-06-03] MEDS: WITCH HAZEL-GLYCERIN PAD TOP PRN (18:19)
[2025-06-03] MEDS: DERMOPLAST 60ML BOTTLE TOP PRN (18:19)
[2025-06-03] MEDS: PHISODERM TOP SOLN 240ML BTL TOP PRN (18:19)
[2025-06-03] MEDS ORDERED: LIDOCAINE HCL 2 %PF INJ 10ML AMP IJ ONE (19:00)
[2025-06-03] MEDS ORDERED: NALOXONE HCL 0.4 MG/ML VIAL IV ONE (19:00)
[2025-06-03] MEDS: fentaNYL CITRATE 100 MCG/2 ML VL IV ONE (19:38)
[2025-06-03] MEDS: ROPIVACAINE HCL 100 ML ONE (19:39)
[2025-06-03] MEDS: LACTATED RINGER'S 1,000 ML IV ONE (19:55)
--- NOTE | 2025-06-03 20:06 | EPIDURAL ---
Anesthesia Procedural Note - Epidural Informed consent obtained?: Yes Medication Administered: Fentanyl 100 mcg Sterile prept drape: Yes Spinal level of insertion: L4-L5 Test dose of lidocaine & Epine: Negative Infusion started: Yes Start time: 19:15 End time: 19:45 Procedure description Procedure description: Called for labor analgesia. Patient examined, history taken and chart reviewed. Patient is admitted for induction, requesting epidural. Informed consent for CSE obtained. Sitting position, sterile prep and drape (BP 150/79 HR 88 spO2 98). Time out done. L4-5 space infiltrated with 1% lido. Epidural needle placed with KANDIS at 6cm. 25G spinal needle +clear CSF. 15mcg fentanyl given IT. Epidural catheter secured at 11cm. Aspiration and test dose (3cc 1.5% lido with epi) nega tive (BP 140/80 HR 83 spO2 98). 85mcg fentanyl given via epidural catheter. Patient reports good pain relief. 0.2% ropivacaine infusion started. Will follow as needed. HILARY LYNNE MD Jun 03, 2025 20:06
--- NOTE | 2025-06-03 20:21 | DVHPN2 ---
CNM Labor Progress Note Date and Time Seen Date Seen: Jun 03, 2025 Time Seen: 20:04 Subjective Patient reports: No new complaints Subjective Comment L&D Rounding Note 06/03/2025 Time 2000 40 yo (2,0,0,2) IUP 38w5d IOL for Oligohydramnios LUIS 5.1 Reports good movements Problems Multigravida Advance Maternal Age Oligohydramnios Received care with Dr Cardenas . HPI - normal course thus far / AMA/ Oligohydramnios / X2 Blood Type : O positive Antibody : Negative Rubella: Immune RPR: Non Reactive GBS status: Negative Last OB US Date: EFW 6lbs 0 oz Past History OB: G#1 2008 G#2 2019 G#3 Current Objective Vital Signs Date Time Temp Pulse Resp B/P (MAP) Pulse Ox O2 Delivery O2 Flow Rate FiO2 06/03/25 19:38 137/83 Current Medications Medications (Trade) Dose Ordered Sig/Georgie Start Time Stop Time Status Last Admin Dose Admin Lactated Ringer's 1,000 ml @ 125 mls/hr Q8H 06/03/25 10:00 06/03/25 16:03 125 MLS/HR Witch Ruthie (Tucks) 1 pad PRN PRN 06/03/25 10:00 06/03/25 18:19 1 PAD Sodium Lauryl Sulfate (Phisoderm) 240 ml PRN PRN 06/03/25 10:00 06/03/25 18:19 240 ML Benzocaine (Dermoplast) 1 applic PRN PRN 06/03/25 10:00 06/03/25 18:19 1 APPLIC Butorphanol Tartrate (Stadol Injection) 1 mg Q4HPRN PRN 06/03/25 10:00 Butorphanol Tartrate (Stadol Injection) 2 mg Q4HPRN PRN 06/03/25 10:00 Misoprostol (Cytotec) 50 mcg Q4HPRN PRN 06/03/25 10:00 06/03/25 16:01 50 MCG Lidocaine HCl (Xylocaine) 20 ml ONCE PRN 06/03/25 10:00 Oxytocin 500 ml @ 999 mls/hr Q31M ONCE 06/03/25 13:30 06/03/25 14:00 DC Oxytocin 500 ml @ 125 mls/hr Q4H ONCE 06/03/25 14:00 06/03/25 17:59 DC Naloxone HCl (Narcan) 0.2 mg PRN ONCE 06/03/25 19:00 06/03/25 19:01 DC Ephedrine Sulfate (ePHEDrine SULFATE) 10 mg PRN ONCE 06/03/25 19:00 06/03/25 19:01 DC Fentanyl Citrate 100 mcg ONCE ONCE 06/03/25 19:00 06/03/25 19:01 DC 06/03/25 19:38 100 MCG Lidocaine HCl (Xylocaine-Pf 2% Injection) 10 ml ONCE ONCE 06/03/25 19:00 06/03/25 19:01 DC Lactated Ringer's 1,000 ml @ 1,000 mls/hr Q1H ONCE 06/03/25 19:00 06/03/25 19:59 DC 06/03/25 19:55 1,000 MLS/HR Laboratory Tests Test 06/03/25 10:16 06/03/25 10:00 06/03/25 09:15 Range/Units White Blood Count 9.5 4.4-10.8 10^3/uL Red Blood Count 4.41 4.0-5.20 10^6/uL Hemoglobin 13.4 12.2-16.2 g/dL Hematocrit 39.0 36.0-46.0 % Mean Corpuscular Volume 88.4 80.0-100.0 fL Mean Corpuscular Hemoglobin 30.4 28.0-32.0 pg Mean Corpuscular Hemoglobin Concent 34.4 32.0-36.0 g/dL Red Cell Distribution Width 15.6 H 11.8-14.3 % Platelet Count 341 140-450 10^3/uL Mean Platelet Volume 7.2 6.9-10.8 fL Neutrophils (%) (Auto) 76.2 37.0-80.0 % Lymphocytes (%) (Auto) 17.9 10.0-50.0 % Monocytes (%) (Auto) 5.3 0.0-12.0 % Eosinophils (%) (Auto) 0.4 0.0-7.0 % Basophils (%) (Auto) 0.2 0.0-2.0 % Neutrophils # (Auto) 7.3 1.6-8.6 10 ^3/uL Lymphocytes # (Auto) 1.7 0.4-5.4 10 ^3/uL Monocytes # (Auto) 0.5 0-1.3 10 ^3/uL Eosinophils # (Auto) 0 0-0.8 10 ^3/uL Basophils # (Auto) 0 0-0.2 10 ^3/uL Nucleated Red Blood Cells 0.2 % Prothrombin Time 9.6 9.3-11.8 sec Prothrombin Time INR 0.90 0.9-1.15 Activated Partial Thromboplast Time 31.0 24.5-34.5 SEC Sodium Level 138 136-145 mmol/L Potassium Level 4.0 3.5-5.1 mmol/L Chloride Level 104 98-107 mmol/L Carbon Dioxide Level 24 20-31 mmol/L Anion Gap 10 5-15 Blood Urea Nitrogen 6 L 9-23 mg/dL Creatinine 0.55 0.550-1.02 mg/dL Glomerular Filtration Rate Calc 120 >90 mL/min BUN/Creatinine Ratio 10.9 10.0-20.0 Serum Glucose 62 L 74-106 mg/dL Calcium Level 9.7 8.7-10.4 mg/dL Total Bilirubin 0.4 0.2-1.0 mg/dL Aspartate Amino Transferase (AST) 12 L 13-40 U/L Alanine Aminotransferase (ALT) 17 7-40 U/L Alkaline Phosphatase 130 H 46-116 U/L Total Protein 7.2 5.7-8.2 g/dL Albumin 4.3 3.2-4.8 g/dL Treponema pallidum Antibody Non-reactive Negative Hepatitis C Antibody Negative Negative HIV (1&2) Antibody Negative Negative Urine Color Colorless Yellow Urine Clarity Clear Clear Urine pH 7.0 5.0-9.0 Urine Specific [place] 1.005 1.001-1.035 Urine Protein Negative Negative Urine Ketones Negative Negative Urine Blood Negative Negative /uL Urine Nitrite Negative Negative Urine Bilirubin Negative Negative Urine Urobilinogen Normal Negative mg/dL Urine Leukocyte Esterase Trace Negative /uL Urine RBC 1 0 - 4 /hpf Urine Microscopic WBC 2 0-5 /HPF Urine Squamous Epithelial Cells Few <5 /hpf Urine Bacteria None seen None Seen /hpf Urine Sperm Present None Seen /hpf Urine Glucose Trace Normal mg/dL Urine Opiates Screen Neg NEGATIVE Urine Fentanyl Screen Neg NEGATIVE Urine Barbiturates Screen Neg NEGATIVE Urine Phencyclidine Screen Neg NEGATIVE Urine Amphetamines Screen Neg NEGATIVE Urine Benzodiazepines Screen Neg NEGATIVE Urine Cocaine Screen Neg NEGATIVE Urine Cannabinoids Screen Neg NEGATIVE Placental Gyyfp-1-Mbvzyjjawnuws Negative PE:A&O x3, Well groomed Afebrile, Heart & Lungs: Normal sound Abdomen: Gravid non- tender, fundal ht: Cephalic presentation by Devan maneuvers EFW 6lb 0 oz SVE : SSE: 60/-2 ASSESSMENT/PLAN IOL for Oligohydramnios Misoprostol 50 mcg X2 will receive third dose Current epidural for pain management FHR baseline 120 bpm, mod variability , Accelerations absent, no deceleration; Category 1 tracing Contractions q6-10 mins x40-60 secs Plan of care discussed with Patient and partner / family Process, Risks, benefits, of available management options discussed, including starting with expectant management, augmentation if indicated, Internal monitoring of UCs & FHT, AROM, amnioinfusion etc only when indicated Patient agrees to starting with expectant management at this time; other interventions as indicated Informed Consent obtained Consent for possible blood transfusion obtained. All questions answered. EFM per policy Anticipate Objective Vital Signs Vital Signs Date Time Temp Pulse Resp B/P (MAP) Pulse Ox O2 Delivery O2 Flow Rate FiO2 06/03/25 19:38 137/83 Monitoring Method Monitoring Method: External Heart Rate Heart Rate Baseline: 120 Heart Rate Variability: Moderate Presence of FHR Accelerations: No Presence of FHR Decelerations: No Changes in Trends of Patterns: No Are all 5 Components of the FH: Yes Contractions Contractions Frequency: Occasional Duration of Contraction: 60 Contractions Intensity: Mild Contractions Resting Tone: Relaxed Membranes Membranes: Intact Vaginal Exam Vag Exam Deferred: No Vaginal Exam Dilation: 3 Vaginal Exam Effacement: 60 Vaginal Exam Station: -2 Vaginal Exam Presentation: VTX Medications Medication - Epidural: Yes Lab Results Lab Results Vital Signs Date Time Temp Pulse Resp B/P (MAP) Pulse Ox O2 Delivery O2 Flow Rate FiO2 06/03/25 19:38 137/83 Current Medications Medications (Trade) Dose Ordered Sig/Georgie Start Time Stop Time Status Last Admin Dose Admin Lactated Ringer's 1,000 ml @ 125 mls/hr Q8H 06/03/25 10:00 06/03/25 16:03 125 MLS/HR Witch Ruthie (Tucks) 1 pad PRN PRN 06/03/25 10:00 06/03/25 18:19 1 PAD Sodium Lauryl Sulfate (Phisoderm) 240 ml PRN PRN 06/03/25 10:00 06/03/25 18:19 240 ML Benzocaine (Dermoplast) 1 applic PRN PRN 06/03/25 10:00 06/03/25 18:19 1 APPLIC Butorphanol Tartrate (Stadol Injection) 1 mg Q4HPRN PRN 06/03/25 10:00 Butorphanol Tartrate (Stadol Injection) 2 mg Q4HPRN PRN 06/03/25 10:00 Misoprostol (Cytotec) 50 mcg Q4HPRN PRN 06/03/25 10:00 06/03/25 16:01 50 MCG Lidocaine HCl (Xylocaine) 20 ml ONCE PRN 06/03/25 10:00 Oxytocin 500 ml @ 999 mls/hr Q31M ONCE 06/03/25 13:30 06/03/25 14:00 DC Oxytocin 500 ml @ 125 mls/hr Q4H ONCE 06/03/25 14:00 06/03/25 17:59 DC Naloxone HCl (Narcan) 0.2 mg PRN ONCE 06/03/25 19:00 06/03/25 19:01 DC Ephedrine Sulfate (ePHEDrine SULFATE) 10 mg PRN ONCE 06/03/25 19:00 06/03/25 19:01 DC Fentanyl Citrate 100 mcg ONCE ONCE 06/03/25 19:00 06/03/25 19:01 DC 06/03/25 19:38 100 MCG Lidocaine HCl (Xylocaine-Pf 2% Injection) 10 ml ONCE ONCE 06/03/25 19:00 06/03/25 19:01 DC Lactated Ringer's 1,000 ml @ 1,000 mls/hr Q1H ONCE 06/03/25 19:00 06/03/25 19:59 DC 06/03/25 19:55 1,000 MLS/HR Laboratory Tests Test 06/03/25 10:16 06/03/25 10:00 06/03/25 09:15 Range/Units White Blood Count 9.5 4.4-10.8 10^3/uL Red Blood Count 4.41 4.0-5.20 10^6/uL Hemoglobin 13.4 12.2-16.2 g/dL Hematocrit 39.0 36.0-46.0 % Mean Corpuscular Volume 88.4 80.0-100.0 fL Mean Corpuscular Hemoglobin 30.4 28.0-32.0 pg Mean Corpuscular Hemoglobin Concent 34.4 32.0-36.0 g/dL Red Cell Distribution Width 15.6 H 11.8-14.3 % Platelet Count 341 140-450 10^3/uL Mean Platelet Volume 7.2 6.9-10.8 fL Neutrophils (%) (Auto) 76.2 37.0-80.0 % Lymphocytes (%) (Auto) 17.9 10.0-50.0 % Monocytes (%) (Auto) 5.3 0.0-12.0 % Eosinophils (%) (Auto) 0.4 0.0-7.0 % Basophils (%) (Auto) 0.2 0.0-2.0 % Neutrophils # (Auto) 7.3 1.6-8.6 10 ^3/uL Lymphocytes # (Auto) 1.7 0.4-5.4 10 ^3/uL Monocytes # (Auto) 0.5 0-1.3 10 ^3/uL Eosinophils # (Auto) 0 0-0.8 10 ^3/uL Basophils # (Auto) 0 0-0.2 10 ^3/uL Nucleated Red Blood Cells 0.2 % Prothrombin Time 9.6 9.3-11.8 sec Prothrombin Time INR 0.90 0.9-1.15 Activated Partial Thromboplast Time 31.0 24.5-34.5 SEC Sodium Level 138 136-145 mmol/L Potassium Level 4.0 3.5-5.1 mmol/L Chloride Level 104 98-107 mmol/L Carbon Dioxide Level 24 20-31 mmol/L Anion Gap 10 5-15 Blood Urea Nitrogen 6 L 9-23 mg/dL Creatinine 0.55 0.550-1.02 mg/dL Glomerular Filtration Rate Calc 120 >90 mL/min BUN/Creatinine Ratio 10.9 10.0-20.0 Serum Glucose 62 L 74-106 mg/dL Calcium Level 9.7 8.7-10.4 mg/dL Total Bilirubin 0.4 0.2-1.0 mg/dL Aspartate Amino Transferase (AST) 12 L 13-40 U/L Alanine Aminotransferase (ALT) 17 7-40 U/L Alkaline Phosphatase 130 H 46-116 U/L Total Protein 7.2 5.7-8.2 g/dL Albumin 4.3 3.2-4.8 g/dL Treponema pallidum Antibody Non-reactive Negative Hepatitis C Antibody Negative Negative HIV (1&2) Antibody Negative Negative Urine Color Colorless Yellow Urine Clarity Clear Clear Urine pH 7.0 5.0-9.0 Urine Specific [place] 1.005 1.001-1.035 Urine Protein Negative Negative Urine Ketones Negative Negative Urine Blood Negative Negative /uL Urine Nitrite Negative Negative Urine Bilirubin Negative Negative Urine Urobilinogen Normal Negative mg/dL Urine Leukocyte Esterase Trace Negative /uL Urine RBC 1 0 - 4 /hpf Urine Microscopic WBC 2 0-5 /HPF Urine Squamous Epithelial Cells Few <5 /hpf Urine Bacteria None seen None Seen /hpf Urine Sperm Present None Seen /hpf Urine Glucose Trace Normal mg/dL Urine Opiates Screen Neg NEGATIVE Urine Fentanyl Screen Neg NEGATIVE Urine Barbiturates Screen Neg NEGATIVE Urine Phencyclidine Screen Neg NEGATIVE Urine Amphetamines Screen Neg NEGATIVE Urine Benzodiazepines Screen Neg NEGATIVE Urine Cocaine Screen Neg NEGATIVE Urine Cannabinoids Screen Neg NEGATIVE Placental [id number]-8-[id number] Negative Plan Plan discussed with: Patient Visit Coding OBGYN Date of Service: Jun 03, 2025 Billing Provider: ZUHAIR TRIMBLE CNM BUILDING ASSOCIATE Common Visit Codes: [id number] OBS CARE (MOD) ZUHAIR TRIMBLE 2024 20:21
[2025-06-03] MEDS ORDERED: LACT. RINGERS/OXYTOCIN 20UNITS 1,000 ML IV SCH (23:45)
[2025-06-03] MEDS ORDERED: TERBUTALINE SULFATE 1 MG/ML 1ML VIAL SC PRN (23:45)
--- NOTE | 2025-06-04 00:05 | DVHPN2 ---
CNM Labor Progress Note Date and Time Seen Date Seen: Jun 03, 2025 Time Seen: 23:40 Subjective Patient reports: No new complaints Subjective Comment L&D Rounding Note 06/03/2025 Time 2340 40 yo (2,0,0,2) IUP 38w5d IOL for Oligohydramnios LUIS 5.1 Received Misoprostol 50 mcg p.o X3 Pain managed with Epidural Resting comfortably Problems Multigravida Advance Maternal Age Oligohydramnios Received care with Dr Cardenas . HPI - normal course thus far / AMA/ Oligohydramnios / X2 Blood Type : O positive Antibody : Negative Rubella: Immune RPR: Non Reactive GBS status: Negative Last OB US Date: EFW 6lbs 0 oz Past History OB: G#1 2008 G#2 2019 G#3 Current Objective Vital Signs Vital Signs Date Time Temp Pulse Resp B/P (MAP) Pulse Ox O2 Delivery O2 Flow Rate FiO2 06/03/25 19:38 137/83 Monitoring Method Monitoring Method: External Heart Rate Heart Rate Baseline: 120 Heart Rate Variability: Moderate Presence of FHR Accelerations: Yes Presence of FHR Decelerations: No Changes in Trends of Patterns: No Are all 5 Components of the FH: Yes Contractions Contractions Frequency: Other Duration of Contraction: 3 (Min ) Contractions Intensity: Moderate Contractions Resting Tone: Relaxed Membranes Membranes: Ruptured Amniotic Fluid Color: Clear Vaginal Exam Vag Exam Deferred: No Vaginal Exam Dilation: 6 Vaginal Exam Effacement: 90 Vaginal Exam Station: 0 Vaginal Exam Show: Moderate Medications Medications - Pitocin: No Lab Results Lab Results Vital Signs Date Time Temp Pulse Resp B/P (MAP) Pulse Ox O2 Delivery O2 Flow Rate FiO2 06/03/25 19:38 137/83 Current Medications Medications (Trade) Dose Ordered Sig/Georgie Start Time Stop Time Status Last Admin Dose Admin Lactated Ringer's 1,000 ml @ 125 mls/hr Q8H 06/03/25 10:00 06/03/25 20:44 125 MLS/HR Witsandra Hendricks (Tucks) 1 pad PRN PRN 06/03/25 10:00 06/03/25 18:19 1 PAD Sodium Lauryl Sulfate (Phisoderm) 240 ml PRN PRN 06/03/25 10:00 06/03/25 18:19 240 ML Benzocaine (Dermoplast) 1 applic PRN PRN 06/03/25 10:00 06/03/25 18:19 1 APPLIC Butorphanol Tartrate (Stadol Injection) 1 mg Q4HPRN PRN 06/03/25 10:00 Butorphanol Tartrate (Stadol Injection) 2 mg Q4HPRN PRN 06/03/25 10:00 Misoprostol (Cytotec) 50 mcg Q4HPRN PRN 06/03/25 10:00 06/03/25 20:01 50 MCG Lidocaine HCl (Xylocaine) 20 ml ONCE PRN 06/03/25 10:00 Oxytocin 500 ml @ 999 mls/hr Q31M ONCE 06/03/25 13:30 06/03/25 14:00 DC Oxytocin 500 ml @ 125 mls/hr Q4H ONCE 06/03/25 14:00 06/03/25 17:59 DC Naloxone HCl (Narcan) 0.2 mg PRN ONCE 06/03/25 19:00 06/03/25 19:01 DC Ephedrine Sulfate (ePHEDrine SULFATE) 10 mg PRN ONCE 06/03/25 19:00 06/03/25 19:01 DC Fentanyl Citrate 100 mcg ONCE ONCE 06/03/25 19:00 06/03/25 19:01 DC 06/03/25 19:38 100 MCG Lidocaine HCl (Xylocaine-Pf 2% Injection) 10 ml ONCE ONCE 06/03/25 19:00 06/03/25 19:01 DC Lactated Ringer's 1,000 ml @ 1,000 mls/hr Q1H ONCE 06/03/25 19:00 06/03/25 19:59 DC 06/03/25 19:55 1,000 MLS/HR Oxytocin 1,000 ml @ 6 ml/hr Q24H 06/03/25 23:45 Terbutaline Sulfate (Brethine Inj) 0.25 mg ONCE PRN 06/03/25 23:45 Laboratory Tests Test 06/03/25 10:16 06/03/25 10:00 06/03/25 09:15 Range/Units White Blood Count 9.5 4.4-10.8 10^3/uL Red Blood Count 4.41 4.0-5.20 10^6/uL Hemoglobin 13.4 12.2-16.2 g/dL Hematocrit 39.0 36.0-46.0 % Mean Corpuscular Volume 88.4 80.0-100.0 fL Mean Corpuscular Hemoglobin 30.4 28.0-32.0 pg Mean Corpuscular Hemoglobin Concent 34.4 32.0-36.0 g/dL Red Cell Distribution Width 15.6 H 11.8-14.3 % Platelet Count 341 140-450 10^3/uL Mean Platelet Volume 7.2 6.9-10.8 fL Neutrophils (%) (Auto) 76.2 37.0-80.0 % Lymphocytes (%) (Auto) 17.9 10.0-50.0 % Monocytes (%) (Auto) 5.3 0.0-12.0 % Eosinophils (%) (Auto) 0.4 0.0-7.0 % Basophils (%) (Auto) 0.2 0.0-2.0 % Neutrophils # (Auto) 7.3 1.6-8.6 10 ^3/uL Lymphocytes # (Auto) 1.7 0.4-5.4 10 ^3/uL Monocytes # (Auto) 0.5 0-1.3 10 ^3/uL Eosinophils # (Auto) 0 0-0.8 10 ^3/uL Basophils # (Auto) 0 0-0.2 10 ^3/uL Nucleated Red Blood Cells 0.2 % Prothrombin Time 9.6 9.3-11.8 sec Prothrombin Time INR 0.90 0.9-1.15 Activated Partial Thromboplast Time 31.0 24.5-34.5 SEC Sodium Level 138 136-145 mmol/L Potassium Level 4.0 3.5-5.1 mmol/L Chloride Level 104 98-107 mmol/L Carbon Dioxide Level 24 20-31 mmol/L Anion Gap 10 5-15 Blood Urea Nitrogen 6 L 9-23 mg/dL Creatinine 0.55 0.550-1.02 mg/dL Glomerular Filtration Rate Calc 120 >90 mL/min BUN/Creatinine Ratio 10.9 10.0-20.0 Serum Glucose 62 L 74-106 mg/dL Calcium Level 9.7 8.7-10.4 mg/dL Total Bilirubin 0.4 0.2-1.0 mg/dL Aspartate Amino Transferase (AST) 12 L 13-40 U/L Alanine Aminotransferase (ALT) 17 7-40 U/L Alkaline Phosphatase 130 H 46-116 U/L Total Protein 7.2 5.7-8.2 g/dL Albumin 4.3 3.2-4.8 g/dL Treponema pallidum Antibody Non-reactive Negative Hepatitis C Antibody Negative Negative HIV (1&2) Antibody Negative Negative Urine Color Colorless Yellow Urine Clarity Clear Clear Urine pH 7.0 5.0-9.0 Urine Specific [place] 1.005 1.001-1.035 Urine Protein Negative Negative Urine Ketones Negative Negative Urine Blood Negative Negative /uL Urine Nitrite Negative Negative Urine Bilirubin Negative Negative Urine Urobilinogen Normal Negative mg/dL Urine Leukocyte Esterase Trace Negative /uL Urine RBC 1 0 - 4 /hpf Urine Microscopic WBC 2 0-5 /HPF Urine Squamous Epithelial Cells Few <5 /hpf Urine Bacteria None seen None Seen /hpf Urine Sperm Present None Seen /hpf Urine Glucose Trace Normal mg/dL Urine Opiates Screen Neg NEGATIVE Urine Fentanyl Screen Neg NEGATIVE Urine Barbiturates Screen Neg NEGATIVE Urine Phencyclidine Screen Neg NEGATIVE Urine Amphetamines Screen Neg NEGATIVE Urine Benzodiazepines Screen Neg NEGATIVE Urine Cocaine Screen Neg NEGATIVE Urine Cannabinoids Screen Neg NEGATIVE Placental Szeca-1-Ofkxcnwypdrfz Negative Assessment Assessment ASSESSMENT/PLAN AROM 2350 Clear Moderate fluid noted Current SVE 6/90/0 Hold Pitocin augmentation for now IOL for Oligohydramnios Misoprostol 50 mcg X3 Current epidural for pain management FHR baseline 120 bpm, mod variability , Accelerations Present, no deceleration; Category 1 tracing Contractions q 3 mins 60-90 secs Plan of care discussed with Patient and partner / family Process, Risks, benefits, of available management options discussed, including starting with expectant management, augmentation if indicated, Patient agrees to starting with expectant management at this time; other interventions as indicated Informed Verbal Consent obtained Consent for possible blood transfusion obtained. All questions answered. EFM per policy Anticipate Plan Plan discussed with: Patient Visit Coding OBGYN Date of Service: Jun 04, 2025 Billing Provider: ZUHAIR TRIMBLE CNM SAW SETTER Common Visit Codes: [id number] OBS CARE (MOD) ZUHAIR TRIMBLE 2024 00:05
[2025-06-04] MEDS: LACT. RINGERS/OXYTOCIN 20UNITS 500 ML IV ONE ×2 (02:32→02:33)
--- NOTE | 2025-06-04 02:44 | LDN2 ---
Labor and Delivery Note Date 06/04/25 Age 40 3 Para Para 3 AB 0 EDC 06/12/2025 Diagnosis Normal Spontaneous Vaginal Delivery Vaginal Delivery: VTX Vacuum Assisted: No Placenta: Spontaneous Sex: Male Weight 6 lb 4 oz Apgars 1 min , 8 / 5 min 9 Nuchal Cord Transected: No Amniotic Fluid: Clear Anesthesia Epidural Episiotomy: No Extension: No EBL 200 ML Labs Laboratory Tests 06/03/25 10:16: HIV (1&2) Antibody Negative 12/02/24 15:12: Hepatitis B Surface Antigen Negative 11/12/24 16:02: Rubella Antibody Positive Blood Bank 06/03/25 10:16: Blood Type O POSITIVE Conditions Stable Comments/Significant Med Le Note- At 06/04/2025 @ 25197 Patient 40 y/o 39w6d Delivery a viable Male infant by w/ APGARS 8/9. AMBERLY with no complications placed skin to skin on pts chest. Cord clamped and cut after 3 min and pu lsation ceased. Cord blood sent. Intact 3-vessel cord Active Managment of the third stage, Pitocin IV bolus started. Placenta delivered spontaneously @ 0212, Solitario. Placenta sent to pathology. Patient had epidural and local anesthesia. Perineal Cervix/vagina inspected intact and intact perineal present. Fundus at -1 Umbilicus , firm, midline, and light lochia. QBL 200ml. Count correct x2. Patient to care and baby to couplet care, both stable. Rectal mucosa and sphincter intact. Rectal exam performed, WNL, not involved. succenturiate placental lobe noted, intact Visit Coding OBGYN Date of Service: Jun 04, 2025 Billing Provider: ZUHAIR TRIMBLE CNM FILM SOUND COORDINATOR Common Visit Codes: [id number] OBS CARE (MOD) [facility] [place] [facility]
[2025-06-04] MEDS ORDERED: ACETAMINOPHEN 325 MG TAB PO PRN (03:00)
[2025-06-04 04:30] VITALS: BP 120/59; PULSE 81; RESP 16; TEMP 98.1; TEMP 98.9; O2SAT 98
[2025-06-04] MEDS: IBUPROFEN 600 MG TAB PO PRN (05:05)
[2025-06-04 07:00] VITALS: BP_SYST 113; BP_SYST 119; BP_DIAS 65; BP_DIAS 81; PULSE 82; PULSE 83; RESP 16; RESP 17; TEMP 98.2; TEMP 98.6; O2SAT 82; O2SAT 95; O2SAT 99
[2025-06-04 11:00] VITALS: BP 113/65; PULSE 83; RESP 16; TEMP 98.2; O2SAT 99
[2025-06-04 15:17] VITALS: BP 106/62; PULSE 97; RESP 17; TEMP 98; O2SAT 97
[2025-06-04 19:00] VITALS: BP 118/68; PULSE 81; RESP 16; TEMP 98.4; O2SAT 98
[2025-06-04 22:30] VITALS: BP 114/77; PULSE 85; RESP 16; TEMP 98.1; O2SAT 97
--- NOTE | 2025-06-05 02:48 | DVHPN2 ---
Progress Note Date Seen: Jun 05, 2025 Subjective Patient resting R lateral upon entry to the room. Primary RN at bedside discussing baby 24 hour testing SUBJECTIVE -Lochia minimal -Tolerating regular diet well. -Pain relieved with oral medication PRN -Ambulating and voiding well w/o feeling lightheaded or dizzy. -Passing flatus. Had first bowel movement w/o complication -Breast feeding. - Contraceptive plan: Undecided -Desires and requests to be discharged home today (06/05) vital signs Vital Sign Date Time Temp Pulse Resp B/P (MAP) Pulse Ox O2 Delivery O2 Flow Rate FiO2 06/04/25 22:30 98.1 85 16 114/77 (89) 97 98.1 06/04/25 18:45 Room Air Total Intake and Output 06/04/25 06/04/25 06/05/25 15:00 23:00 07:00 Output Total 1600 ml 1200 ml Balance -1600 ml -1200 ml medications Current Medications Medications Dose Ordered Sig/Georgie Route Start Time Stop Time Status Last Admin Dose Admin Joaquim Hendricks 1 pad PRN PRN TOP 06/03/25 10:00 06/03/25 18:19 1 PAD Sodium Lauryl Sulfate 240 ml PRN PRN TOP 06/03/25 10:00 06/03/25 18:19 240 ML Benzocaine 1 applic PRN PRN TOP 06/03/25 10:00 06/03/25 18:19 1 APPLIC Ibuprofen 600 mg Q6HP PRN PO 06/04/25 03:00 06/04/25 18:41 600 MG Acetaminophen 650 mg Q4HP PRN PO 06/04/25 03:00 laboratory and microbiology Laboratory Tests 06/03/25 10:16 Test 06/03/25 10:16 Range/Units Serum Glucose 62 L 74-106 mg/dL Objective OBJECTIVE -A&O x4. No apparent distress. Affect appropriate -Afebrile, VSS -Chest: heart and lung sounds normal. -Breasts: Nipples intact w/o cracks or soreness -Abdomen: normal BS, soft, non-tender, no rebound or guarding, fundus firm @ U- 1, lochia minimal -Perineum:- no edema, or erythema, intact -Extremities: no edema or tenderness Problems(with codes): (1) Normal spontaneous vaginal delivery Assessment/Plan ASSESSMENT -40 yo now ppd #1 s/p doing well. -Blood Type: O+ -Breast feeding -Rubella Immune PLAN -Continue pain management with oral medications as previously ordered -Maintain adequate fluid intake and fiber in diet to continue promoting regular bowel movements -Encouraged patient to continue taking vitamin and iron -Educated patient on self care and warning signs of PPH, PPD, and pre-eclampsia. Answered all pt questions and concerns -Continue routine care and anticipate discharge today Plan discussed with: Patient Visit Coding OBGYN Date of Service: Jun 05, 2025 Billing Provider: SMITHA HODGSON CNM DARKROOM TECHNICIAN Common Visit Codes: [id number] INP/OBS CARE(HIGH) SMITHA HODGSON CNM Jun 05, 2025 02:48
--- NOTE | 2025-06-05 02:50 | DVHDS2 ---
Obstetrics Discharge Summary Obstetrics Discharge Summary Date of Admission: Jun 03, 2025 Date of Discharge: Jun 05, 2025 Reason For Admission: Induction of Labor Intrapartum Procedures: Spontaneous vaginal deliv Discharge Diagnosis: Term -Delivered Discharge Information: Activity (Unrestricted. Advance as tolerated. Balance activities with rest periods. No heavy lifting, pushing or straining. Pelvic rest x 6 weeks), Diet (Routine regular diet rich in fiber, protein, iron and vitamin C with adequate fluid intake.), Medications (Ibuprofen 600mg every 6 hours as needed for pain. Colace 100mg twice a day as needed to keep bowel movements soft and prevent constipation. Continue Vitamin and iron), Discharge to (Home), Discarge date (06/05/2025) Discharge Care Plan Instructions - self care instructions given - emergency signs and symptoms including but not limited to pre-eclampsia precautions and signs of infection, PPH & of PPD reviewed with patient. -Follow up with OB Provider in 2 weeks and again at 6 weeks Visit Coding OBGYN Date of Service: Jun 05, 2025 Billing Provider: SMITHA HODGSON CNM SLAG SKIMMER Common Visit Codes: [id number] DISCH DAY >30MIN SMITHA HODGSON CNM Jun 05, 2025 02:50
[2025-06-05] MEDS ORDERED: IBU600T PO (02:51)
[2025-06-05] MEDS ORDERED: DOCU-94 PO (02:51)
[2025-06-05 03:00] VITALS: BP 114/82; PULSE 75; RESP 15; TEMP 98.3; O2SAT 99
[2025-06-05 07:00] VITALS: BP 111/72; PULSE 77; RESP 16; TEMP 97.8; O2SAT 99
[2025-06-05 10:45] VITALS: BP 114/72; PULSE 77; RESP 16; TEMP 98.1; O2SAT 99
[2025-06-05 12:25] VITALS: BP 114/72; PULSE 77; RESP 16; TEMP 98.1; O2SAT 99
== END 2025-06-05 12:25 | disposition home or self-care (01) | DRG 807 ==
LOC: UNDOADMOB 08:02 → LDRP 08:02 → OBSVTOIN 09:55 → LDRP 09:55
PROVIDERS: ADMIT Obstetrics & Gynecology; ATTEND Obstetrics & Gynecology
PROC: 3E0DXGC Introduction of Other Therapeutic Substance into Mouth and Pharynx, External Approach (ICD-10-PCS; 2025-06-03)
PROC: 00HU33Z Insertion of Infusion Device into Spinal Canal, Percutaneous Approach (ICD-10-PCS; 2025-06-03)
PROC: 3E0R3BZ Introduction of Anesthetic Agent into Spinal Canal, Percutaneous Approach (ICD-10-PCS; 2025-06-03)
PROC: 10E0XZZ Delivery of Products of Conception, External Approach (ICD-10-PCS; principal; 2025-06-04)
PROC: 10907ZC Drainage of Amniotic Fluid, Therapeutic from Products of Conception, Via Natural or Artificial Opening (ICD-10-PCS; 2025-06-04)
DX: O41.03X0 Oligohydramnios, third trimester, not applicable or unspecified (principal); Z37.0 Single live birth; Z3A.38 38 weeks gestation of pregnancy; O36.8130 Decreased fetal movements, third trimester, not applicable or unspecified
CPT/HCPCS: 36415; 59409; 62282; 76819; 80053; 80307; 81001; 81002; 84112; 85025; 85610; 85730; 86703; 86780; 86803; 86850; 86900; 86901; 94760; 94762; 96360; 96361; 96365; 96366; G0378; J2590